=== PATIENT | female | born 1965 | race Hispanic/Latino ===

== ENCOUNTER 2019-06-06 13:44 | Emergency (ER) | payer BC ==
[~2019-06-06] VITALS: Ht 154.9 cm; Wt 68.0 kg
--- NOTE | 2019-06-06 13:58 | NUR ---
DR LAM TO SEE PATIENT AT THIS TIME
[2019-06-06 15:21] LABS: BASOPHILS # (AUTO) 0.1 (0.0-0.1); BASOPHILS % 0.8 % (0.0-1.0); EOSINOPHILS # (AUTO) 0.2 (0.0-0.4); EOSINOPHILS % 3.3 % (0.0-6.0); HEMATOCRIT 39.3 % (34.2-44.1); HEMOGLOBIN 13.1 g/dL (12.0-16.0); LYMPHOCYTES # (AUTO) 2.7 (1.0-3.2); LYMPHOCYTES % 36.6 % (18.0-39.1); MEAN CORPUSCULAR HGB CONC 33.3 g/dL (31-35); MEAN CORPUSCULAR VOLUME 90.1 fL (81-99); MONOCYTES # (AUTO) 0.6 (0.2-0.8); MONOCYTES % 7.5 % (4.4-11.3); NEUTROPHILS # (AUTO) 3.8 (2.1-6.9); NEUTROPHILS % 51.7 % (38.7-80.0); PLATELET COUNT 329 x10e3/uL (140-360); RED BLOOD COUNT 4.36 x10e6/uL (3.6-5.1); RED CELL DISTRIBUTION WIDTH 12.9 % (11.7-14.4)
--- NOTE | 2019-06-06 15:27 | Diagnostic Imaging Report ---
EXAMINATION: CHEST 2 VIEWS INDICATION: Throat swelling ^PALPITATIONS ^[id number] ^1500 COMPARISON: None FINDINGS: PA and lateral views TUBES and LINES: None. LUNGS: Lungs are well inflated. There is no evidence of pneumonia or pulmonary edema. PLEURA: No pleural effusion or pneumothorax. HEART AND MEDIASTINUM: The cardiomediastinal silhouette is unremarkable. BONES AND SOFT TISSUES: No focal osseous lesions. Soft tissues are unremarkable. UPPER ABDOMEN: Unremarkable. IMPRESSION: No acute thoracic abnormality. Signed by: Dr. Dereje Turner MD on 06/06/2019 3:23 PM
[2019-06-06 15:33] LABS: INR 0.92; PROTHROMBIN TIME 12.9 seconds (11.9-14.5)
[2019-06-06 15:34] LABS: PARTIAL THROMBOPLASTIN TIME 25.5 seconds (23.8-35.5)
[2019-06-06 15:48] LABS: CLARITY,URINE HAZY (CLEAR); COLOR,URINE YELLOW (YELLOW)
[2019-06-06 15:49] LABS: BILIRUBIN,URINE NEGATIVE (NEGATIVE); KETONES,URINE NEGATIVE (NEGATIVE); LEUKOCYTE ESTERASE ,URINE NEGATIVE (NEGATIVE); NITRITE,URINE NEGATIVE (NEGATIVE); PROTEIN,URINE DIPSTICK NEGATIVE (NEGATIVE); URINE UROBILINOGEN 0.2 mg/dL (0.2 - 1)
[2019-06-06 15:50] LABS: BACTERIA,URINE FEW /HPF; EPITHELIAL CELLS,URINE FEW /LPF; PREGNANCY TEST, URINE NEGATIVE (NEGATIVE); RBC,URINE 0-5 /HPF (0-5); WBC,URINE (MAN) 0-5 /HPF (0-5)
[2019-06-06 16:43] LABS: ALANINE AMINOTRANSFERASE 14 IU/L (0-55); ALBUMIN 4.3 g/dL (3.5-5.0); ALBUMIN/GLOBULIN RATIO 1.5 (0.8-2.0); ALKALINE PHOSPHATASE 58 IU/L (40-150); ANION GAP 15.1 mmol/L (8-16); BLOOD UREA NITROGEN 12 mg/dL (7-26); BUN/CREATININE RATIO 16 (6-25); CALCIUM 9.4 mg/dL (8.4-10.2); CARBON DIOXIDE 22 mmol/L (22-29); CHLORIDE 109 mmol/L (98-107); CREATINE KINASE 106 IU/L (29-168); CREATININE, SERUM 0.77 mg/dL (0.57-1.11); EST GLOMERULAR FILTRATION RATE > 60 ML/MIN (60-); GLUCOSE 106 mg/dL (74-118); MAGNESIUM 1.9 MG/DL (1.3-2.1); POTASSIUM 4.1 mmol/L (3.5-5.1); SODIUM 142 mmol/L (136-145)
[2019-06-06 17:03] LABS: THYROID STIMULATING HORMONE 1.803 uIU/mL (0.350-4.940)
[2019-06-06 17:29] VITALS: BP 120/58
== END 2019-06-06 17:30 | disposition home or self-care (01) ==
LOC: ER 13:44
DX: R00.2 Palpitations (principal); R42 Dizziness and giddiness
CPT/HCPCS: 36415; 71046; 80053; 81001; 81025; 82550; 82553; 83735; 83880; 84443; 84484; 85025; 85610; 85730; 93005; 99283